=== PATIENT | male | born 1995 | race Two or more races ===

== ENCOUNTER 2021-02-03 20:06 | Emergency (ER) | payer MEDICAID, OTHER ==
[~2021-02-03] VITALS: Ht 160 cm; Wt 56.7 kg
[2021-02-03 21:41] LABS: Basophils # (auto) 0.1 10 ^3/uL (0-0.2); Eosinophils # (auto) 0.1 10 ^3/uL (0-0.8); Eosinophils % (auto) 0.7 % (0.0-7.0); Red Cell Distribution Width 14.5 % (11.8-14.3)
[2021-02-03 21:43] LABS: Basophils % (auto) 0.7 % (0.0-2.0); Hematocrit 53.1 % (41.0-53.0); Hemoglobin 17.7 g/dL (13.5-17.5); Lymphocytes # (auto) 2.5 10 ^3/uL (0.4-5.4); Lymphocytes % (auto) 16.9 % (10.0-50.0); Mean Corpuscular Hemoglobin 27.9 pg (28.0-32.0); Mean Corpuscular Hgb Conc. 33.3 g/dL (32.0-36.0); Mean Corpuscular Volume 83.6 fL (80.0-100.0); Monocytes # (auto) 1.4 10 ^3/uL (0-1.3); Monocytes % (auto) 9.2 % (0.0-12.0); Neutrophils # (auto) 10.7 10 ^3/uL (1.6-8.6); Neutrophils % (auto) 72.5 % (37.0-80.0); Nucleated Red Blood Cells % 0.2 %; Red Blood Cells 6.35 10^6/uL (4.5-5.90); White Blood Cell 14.8 10^3/uL (4.4-10.8)
[2021-02-03] MEDS ORDERED: HYDROcodone-ACET 5/325MG TAB PO ONE (21:45)
[2021-02-03 21:59] LABS: Albumin 4.4 g/dL (3.4-5.0); BUN/Creatinine Ratio 14.3; Bilirubin, Total 0.4 mg/dL (0.2-1.0); Calcium 8.8 mg/dL (8.5-10.1); Total Protein 8.6 g/dL (6.4-8.2)
[2021-02-03 22:07] LABS: Urine WBC None Seen /hpf (0 - 3)
[2021-02-03 22:09] LABS: Potassium 2.8 mmol/L (3.5-5.1)
[2021-02-03 22:33] LABS: Urine Bacteria NONE SEEN /hpf (None Seen); Urine Blood 1+ /uL (Negative); Urine Budding Yeast OCCASIONAL /hpf (None Seen); Urine Mucus FEW (None Seen)
[2021-02-03 22:37] LABS: Alcohol, Urine < 3.0 mg/dL (0-10); Amphetamine Screen, Urine NEGATIVE (NEGATIVE); Barbiturate Scree,Urine NEGATIVE (NEGATIVE); Benzodiazephine Screen, Urine NEGATIVE (NEGATIVE); Cannabinoid Screen, Urine NEGATIVE (NEGATIVE); Cocaine Screen, Urine NEGATIVE (NEGATIVE); Opiate Scree,Urine NEGATIVE (NEGATIVE); Phencyclidine Screen, Urine NEGATIVE (NEGATIVE)
[2021-02-04] MEDS ORDERED: AZITHROMYCIN 250 MG TAB PO ONE (00:15)
[2021-02-04] MEDS ORDERED: POTASSIUM EFFERVESENT TAB 25 MEQ PO ONE (00:15)
[2021-02-04] MEDS ORDERED: cefTRIAXone SODIUM 250 MG VL IM ONE (00:15)
[2021-02-04 01:00] VITALS: BP 138/93
[2021-02-04] MEDS ORDERED: LIDOCAINE 1% HCL (LOCAL ANESTH.) INJ 20ML MDV ONE (01:09)
== END 2021-02-04 01:28 | disposition home or self-care (01) ==
LOC: ER 20:09
DX: N45.3 Epididymo-orchitis (principal); N50.89 Other specified disorders of the male genital organs; R00.0 Tachycardia, unspecified
CPT/HCPCS: 36415; 76870; 80053; 80307; 81001; 85025; 93005; 96372; 99285; J0696; J2001

== ENCOUNTER → 2022-12-04 | Outpatient (CLI) | payer MEDICAID ==
[~2022-12-04] MED LIST: ALBUTEROL SULF 2.5 MG/0.5ML(0.5%) NEB SOLN ONE
== END | disposition home or self-care (01) ==
LOC: RT 13:05
PROVIDERS: ATTEND Internal Medicine Pulmonary Disease
DX: R05.3 Chronic cough (principal); R06.09 Other forms of dyspnea; Z86.16 Personal history of COVID-19
CPT/HCPCS: 94060; 94727; 94729